=== PATIENT | male | born 1960 | race Caucasian/White ===

== ENCOUNTER 2016-10-28 07:28 | Emergency (ER) | payer MEDICAID ==
[~2016-10-28] VITALS: Ht 185.4 cm; Wt 110.2 kg
[~2016-10-28 07:28] MED LIST: ASPI81CH43 PO; CARI-277 PO; LOSA25TA8 PO; METF-312 PO; NOR10T PO; OMEP20CA5 OR; PAR20T PO; RABE20TA5 PO
[2016-10-28 07:45] VITALS: BP 124/85
[2016-10-28] MEDS ORDERED: KETOROLAC TROMETH 60MG/2ML VIAL IM ONE (09:15)
== END 2016-10-28 09:45 | disposition home or self-care (01) ==
LOC: ER 07:28
DX: M17.12 Unilateral primary osteoarthritis, left knee (principal); F17.210 Nicotine dependence, cigarettes, uncomplicated; J44.9 Chronic obstructive pulmonary disease, unspecified; E11.9 Type 2 diabetes mellitus without complications; K21.9 Gastro-esophageal reflux disease without esophagitis; I10 Essential (primary) hypertension; E07.89 Other specified disorders of thyroid; Z88.8 Allergy status to other drugs, medicaments and biological substances; Z86.73 Personal history of transient ischemic attack (TIA), and cerebral infarction without residual deficits; Z90.89 Acquired absence of other organs
CPT/HCPCS: 73562; 96372; 99284; J1885

== ENCOUNTER 2022-11-13 08:03 | Emergency (ER) | payer MEDICAID ==
[~2022-11-13] VITALS: Ht 185.4 cm; Wt 107.0 kg
[~2022-11-13 08:03] MED LIST changes: +LOSA25TA2 PO; -LOSA25TA8 PO; -METF-312 PO; +METF-370 PO; -OMEP20CA5 OR; +OMEP20CA74 OR; +RABE20TA19 PO; -RABE20TA5 PO
[2022-11-13 08:53] VITALS: BP 173/87
[2022-11-13] MEDS ORDERED: KETOROLAC TROMETH 60MG/2ML VIAL IM ONE (11:15)
== END 2022-11-13 11:14 | disposition home or self-care (01) ==
LOC: ER 08:03
DX: M54.41 Lumbago with sciatica, right side (principal); J44.9 Chronic obstructive pulmonary disease, unspecified; E11.9 Type 2 diabetes mellitus without complications; K21.9 Gastro-esophageal reflux disease without esophagitis; F17.210 Nicotine dependence, cigarettes, uncomplicated; Z86.73 Personal history of transient ischemic attack (TIA), and cerebral infarction without residual deficits; X50.1XXA Overexertion from prolonged static or awkward postures, initial encounter; Y93.89 Activity, other specified; Y92.89 Other specified places as the place of occurrence of the external cause; Y99.8 Other external cause status
CPT/HCPCS: 96372; 99283; J1885

== ENCOUNTER 2023-12-04 07:49 | Inpatient (IN) | payer MEDICAID ==
[2023-12-01 13:38] LABS: Basophils # (auto) 0.1 10 ^3/uL (0-0.2); Basophils % (auto) 1.1 % (0.0-2.0); Eosinophils # (auto) 0.1 10 ^3/uL (0-0.8); Eosinophils % (auto) 1.1 % (0.0-7.0); Hematocrit 47.6 % (41.0-53.0); Hemoglobin 16.2 g/dL (13.5-17.5); Lymphocytes # (auto) 4.3 10 ^3/uL (0.4-5.4); Lymphocytes % (auto) 34.5 % (10.0-50.0); Mean Corpuscular Hemoglobin 31.1 pg (28.0-32.0); Mean Corpuscular Volume 91.4 fL (80.0-100.0); Monocytes # (auto) 0.7 10 ^3/uL (0-1.3); Monocytes % (auto) 5.3 % (0.0-12.0); Neutrophils # (auto) 7.2 10 ^3/uL (1.6-8.6); Nucleated Red Blood Cells % 0.6 %; Red Blood Cells 5.21 10^6/uL (4.5-5.90); Red Cell Distribution Width 13.8 % (11.8-14.3); White Blood Cell 12.4 10^3/uL (4.4-10.8)
[2023-12-01 13:48] LABS: INR 0.98 (0.9-1.15); Partial Thromboplastin Time 20.2 SEC (24.5-34.5); Prothrombin Time 10.4 sec (9.3-11.8)
[2023-12-01 14:24] LABS: Albumin 4.7 g/dL (3.2-4.8); Alkaline Phosphatase 48 U/L (46-116); Anion Gap 7 (5-15); Aspartate Aminotransferase 17 U/L (13-40); BUN/Creatinine Ratio 17.3 (10.0-20.0); Bilirubin, Total 0.6 mg/dL (0.2-1.0); Blood Urea Nitrogen 14 mg/dL (9-23); Calcium 9.6 mg/dL (8.7-10.4); Carbon Dioxide 21 mmol/L (20-30); Chloride 113 mmol/L (98-107); Glucose 96 mg/dL (74-106); Potassium 4.8 mmol/L (3.5-5.1); Sodium 141 mmol/L (136-145); Total Protein 7.8 g/dL (5.7-8.2)
[2023-12-01 14:28] LABS: Alanine Aminotransferase 9 U/L (7-40)
[~2023-12-04] VITALS: Ht 185.4 cm; Wt 103.4 kg
[2023-12-04] VITALS (16 sets, daily range): BP systolic 118–164; BP diastolic 57–136; PULSE 55–76; RESP 9–20; TEMP 97.7–98.9; O2SAT 92–99
[~2023-12-04 07:49] MED LIST changes: +BACL10TA PO; -CARI-277 PO; +CHOL20007 PO; +CLON0.1T PO; +DOCU-94 PO; +FAMO-12 PO; +FURO1TAB31 PO; +GEMF-66 PO; +IBUP-1456 PO; +LEVE500T40 PO; +LOSA-535 PO; -LOSA25TA2 PO; -METF-370 PO; +METO25TA5 PO; -NOR10T PO; -OMEP20CA74 OR; +OXYC325T14 PO; -PAR20T PO; -RABE20TA19 PO; +TEMA15CA2 PO; +THYR30TA PO
[2023-12-04] MEDS: LIDOCAINE 2%HCL (LOCAL ANESTH.) INJ 20ML MDV ONE (09:48)
[2023-12-04] MEDS: IODIXANOL 320MG/ML 100ML BTL IV ONE ×2 (09:48→10:31)
[2023-12-04] MEDS: SODIUM CHL 0.9% 50 ML ONE (09:55)
[2023-12-04] MEDS: fentaNYL CITRATE 100 MCG/2 ML VL ONE (09:55)
[2023-12-04] MEDS: ANGIOMAX 250 MG VIAL IV ONE (09:55)
[2023-12-04] MEDS: MIDAZOLAM HCL 2MG/2ML 2ml VIAL (1mg/ml) ONE ×2 (09:55→10:56)
[2023-12-04] MEDS: NITROGLYCERIN 0.4MG/DOSE SPRAY 4.9GM ONE (11:23)
[2023-12-04] MEDS ORDERED: NITROGLYCERIN 0.4 MG SL TAB SL PRN (12:00)
[2023-12-04] MEDS ORDERED: MORPHINE SULFATE INJ 2 MG/ml SYRG IV PRN (12:00)
[2023-12-04] MEDS ORDERED: ACETAMINOPHEN/CODEINE#3 (300/30mg) TAB PO PRN (12:00)
[2023-12-04] MEDS ORDERED: BACLOFEN 10 MG TAB PO PRN (12:15)
[2023-12-04] MEDS: HYDROmorphone HCL 2 MG/ML VL/or syr IV PRN (12:57)
[2023-12-04] MEDS: IBUPROFEN 800 MG TAB PO SCH (14:00)
[2023-12-04] MEDS: cloNIDine HCL 0.1 MG TAB PO SCH (14:21)
[2023-12-04] MEDS: GEMFIBROZIL 600 MG TAB PO SCH (22:56)
[2023-12-04] MEDS: TEMAZEPAM 15 MG CAP PO SCH (22:56)
[2023-12-04] MEDS: FAMOTIDINE 20 MG TAB PO SCH (22:56)
[2023-12-04] MEDS: DOCUSATE SOD 100 MG CAP PO SCH (22:57)
[2023-12-04] MEDS: levETIRAcetam 500 MG TAB PO SCH (22:58)
[2023-12-04] MEDS: LOSARTAN POTASSIUM 50 MG TAB PO SCH (22:59)
[2023-12-04] MEDS: METOPROLOL TARTRATE 25 MG TAB PO SCH (23:00)
[2023-12-05 01:00] VITALS: BP 130/72; PULSE 73; RESP 18; TEMP 98.4; O2SAT 95
[2023-12-05 03:04] VITALS: BP 154/81; PULSE 69; RESP 17; TEMP 97.7; O2SAT 97
[2023-12-05 05:00] VITALS: BP 124/77; PULSE 62; RESP 16; TEMP 98.5; O2SAT 94
[2023-12-05 06:32] LABS: Albumin 4.3 g/dL (3.2-4.8); Alkaline Phosphatase 45 U/L (46-116); Anion Gap 6 (5-15); Aspartate Aminotransferase 27 U/L (13-40); Bilirubin, Total 0.8 mg/dL (0.2-1.0); Calcium 9.4 mg/dL (8.7-10.4); Carbon Dioxide 21 mmol/L (20-30); Chloride 110 mmol/L (98-107); Glucose 97 mg/dL (74-106); Sodium 137 mmol/L (136-145)
[2023-12-05 06:55] LABS: Potassium 4.5 mmol/L (3.5-5.1)
[2023-12-05 06:56] LABS: Alanine Aminotransferase < 9 U/L (7-40); BUN/Creatinine Ratio 16.7 (10.0-20.0); Blood Urea Nitrogen 12 mg/dL (9-23)
[2023-12-05 07:00] LABS: Hematocrit 42.3 % (41.0-53.0); Hemoglobin 14.8 g/dL (13.5-17.5); Mean Corpuscular Volume 88.4 fL (80.0-100.0); Red Blood Cells 4.78 10^6/uL (4.5-5.90); Red Cell Distribution Width 13.2 % (11.8-14.3); White Blood Cell 12.6 10^3/uL (4.4-10.8)
[2023-12-05 07:13] LABS: Basophils % (manual) 0 (0.0-2.0); Blast Cells 0; Metamyelocytes % 0; Myelocytes % 0; Promyelocytes % 0; Reactive Lymphocytes 0
[2023-12-05 08:00] VITALS: PULSE 65
[2023-12-05 08:09] LABS: Band Neutrophils % (manual) 1; Eosinophils % (manual) 1 (0-7); Lymphocytes % (manual) 25 (10.0-50.0); Monocytes % (manual) 5 (0-12); Platelet Estimate Adequate
[2023-12-05 08:30] VITALS: BP 145/71; PULSE 64; RESP 17; TEMP 97.7; O2SAT 95
[2023-12-05 09:30] VITALS: BP 134/71; PULSE 67; RESP 17
[2023-12-05] MEDS: THYROID 60 MG TAB PO SCH (10:00)
[2023-12-05] MEDS: CHOLECALCIFEROL (VITD3) 1,000UNIT=25mCg TAB PO SCH (10:00)
[2023-12-05] MEDS: hydroCHLOROthiazide 25 MG TAB PO SCH (10:00)
[2023-12-05] MEDS: POTASSIUM CHL 20 Meq TABLET PO SCH (10:00)
[2023-12-05] MEDS: FUROSEMIDE 40 MG TAB PO SCH (10:00)
[2023-12-05] MEDS: ASPirin 81 mg TAB PO SCH (10:00)
== END 2023-12-05 10:50 | disposition home or self-care (01) | DRG 191 ==
LOC: CATH 07:49 → TELE 12:01 → TELE-CENTR 18:48
PROVIDERS: ADMIT Internal Medicine Cardiovascular Disease; ATTEND Internal Medicine Cardiovascular Disease
PROC: B211YZZ Fluoroscopy of Multiple Coronary Arteries using Other Contrast (ICD-10-PCS; principal; 2023-12-04)
PROC: B215YZZ Fluoroscopy of Left Heart using Other Contrast (ICD-10-PCS; 2023-12-04)
PROC: 4A023N7 Measurement of Cardiac Sampling and Pressure, Left Heart, Percutaneous Approach (ICD-10-PCS; 2023-12-04)
PROC: B41FYZZ Fluoroscopy of Right Lower Extremity Arteries using Other Contrast (ICD-10-PCS; 2023-12-04)
PROC: 02JA3ZZ Inspection of Heart, Percutaneous Approach (ICD-10-PCS; 2023-12-04)
DX: I25.119 Atherosclerotic heart disease of native coronary artery with unspecified angina pectoris (principal); I11.0 Hypertensive heart disease with heart failure; I50.32 Chronic diastolic (congestive) heart failure; E78.00 Pure hypercholesterolemia, unspecified; J44.9 Chronic obstructive pulmonary disease, unspecified; G89.29 Other chronic pain; M54.50 Low back pain, unspecified
CPT/HCPCS: 36415; 75710; 80053; 85007; 85025; 85027; 85610; 85730; 87340; 93458; 99152; C1887; G0378; J2250; Q9967